=== PATIENT | male | born 1995 | race Caucasian/White ===

== ENCOUNTER 2019-03-08 09:09 | Emergency (ER) | payer BC ==
[2019-03-08 09:24] VITALS: BP 113/70
--- NOTE | 2019-03-08 09:56 | ED ---
Skin Complaint - HPI Summary HPI Summary: He said a painful erythematous rash between his toes for a few days. - History of Current Complaint Chief Complaint: [facility] Time Seen by Provider: 03/08/19 09:47 Stated Complaint: SKIN ISSUE ON FOOT Hx Obtained From: Patient Onset/Duration: Started Days Ago Timing: Constant Onset Severity: Mild Current Severity: Mild Pain Intensity: 4 Skin Location: Foot Aggravating Symptom(s): Nothing Alleviating Symptom(s): Nothing - Allergy/Home Medications Allergies/Adverse Reactions: Allergies Allergy/AdvReac Type Severity Reaction Status Date / Time latex Allergy Rash Uncoded 03/08/19 09:24 PMH/Surg Hx/FS Hx/Imm Hx Previously Healthy: Yes Respiratory History: Reports: Hx Asthma - Surgical History Surgery Procedure, Year, and Place: t/a Infectious Disease History: No Infectious Disease History: Denies: Traveled Outside the [place] in Last 30 Days - Family History Known Family History: Positive: Respiratory Disease - asthma - Social History Alcohol Use: Weekly Substance Use Type: Reports: None Smoking Status (MU): Former Smoker Type: Cigarettes Amount Used/How Often: 1 cig per day Review of Systems Positive: Rash All Other Systems Reviewed And Are Negative: Yes Physical Exam - Summary Physical Exam Summary: He is nontoxic in appearance with stable vital signs. Triage Information Reviewed: Yes Vital Signs On Initial Exam: Initial Vitals Temp Pulse Resp BP Pulse Ox 97.8 F 90 18 113/70 100 03/08/19 09:20 03/08/19 09:20 03/08/19 09:20 03/08/19 09:20 03/08/19 09:20 Vital Signs Reviewed: Yes Appearance: Positive: Well-Appearing Skin: Positive: Warm, Dry, Scaly Skin/Lesions - Between his great and second toe of the left foot. Musculoskeletal: Positive: Normal Neurological: Positive: Normal Diagnostics - Vital Signs Vital Signs Temp Pulse Resp BP Pulse Ox 03/08/19 09:20 97.8 F 90 18 113/70 100 - Laboratory Lab Statement: Any lab studies that have been ordered have been reviewed, and results considered in the medical decision making process. Course/Dx - Course Course Of Treatment: This 6 a tinea pedis and I'll treat him accordingly with lamisil. - Diagnoses Provider Diagnoses: Tinea pedis Discharge - Sign-Out/Discharge Documenting (check all that apply): Patient Departure All imaging exams completed and their final reports reviewed: No Studies - Discharge Plan Condition: Stable Disposition: HOME Patient Education Materials: Athlete's Foot (ED) Referrals: Suri Powers MD [Primary Care Provider] - - Billing Disposition and Condition Condition: STABLE Disposition: Home
== END 2019-03-08 10:00 | disposition home or self-care (01) ==
LOC: UCEAST 09:09
DX: B35.3 Tinea pedis (principal); Z87.891 Personal history of nicotine dependence
CPT/HCPCS: 99212; G0463